=== PATIENT | female | born 1990 | race African-American/Black ===

== ENCOUNTER 2022-02-05 10:08 | Emergency (ER) | payer SELFPAY ==
[2022-02-05 13:38] LABS: POTASSIUM,K 3.6 mmol/L (3.5-5.1)
== END 2022-02-05 15:31 | disposition home or self-care (01) ==
LOC: MW.ED 10:08
DX: O20.9 Hemorrhage in early pregnancy, unspecified (principal); Z3A.01 Less than 8 weeks gestation of pregnancy
CPT/HCPCS: 36415; 76801; 76801-26; 80048; 81001; 81025; 84702; 85025; 86850; 86900; 86901; 87086; 99284; J2790

== ENCOUNTER 2022-05-31 10:31 | Emergency (ER) | payer MEDICAID ==
[2022-05-31 11:30] LABS: CORONAVIRUS COVID-19 NAA NEGATIVE (NEGATIVE); INFLUENZA A NAA NEGATIVE (NEGATIVE); INFLUENZA B NAA NEGATIVE (NEGATIVE); RESPIRATORY SYNCYTIAL VIR NAA NEGATIVE (NEGATIVE)
== END 2022-05-31 12:07 | disposition home or self-care (01) ==
LOC: MW.ED 10:31
DX: J02.9 Acute pharyngitis, unspecified (principal); Z86.16 Personal history of COVID-19; Z20.822 Contact with and (suspected) exposure to COVID-19
CPT/HCPCS: 0241U; 87651; 99283

== ENCOUNTER 2022-09-21 20:36 | Inpatient (IN) | payer MEDICAID ==
[2022-09-21] MEDS ORDERED: Water For Irrigation,Sterile 1,000 ML Container IRR PRN (21:38)
[2022-09-21] MEDS ORDERED: Misoprostol 200 MCG Tab PO PRN (21:38)
[2022-09-21] MEDS ORDERED: Carboprost Tromethamine 250 MCG/1 mL Vial IM PRN (21:38)
[2022-09-21] MEDS ORDERED: Butorphanol 1 MG/ML SDV IVPUSH PRN (21:38)
[2022-09-21] MEDS ORDERED: Sodium Chloride 0.9% 2.5 ML Syringe FLUSH PRN (21:38)
[2022-09-21] MEDS ORDERED: Tranexamic Acid 1,000 MG in Sodium Chloride 0.9% 100 ML IV PRN (21:38)
[2022-09-21] MEDS ORDERED: Sodium Chloride 0.9% 20 ML SDV IV PRN (21:38)
[2022-09-21] MEDS ORDERED: Methylergonovine 0.2 MG/1 ML Amp IM PRN (21:38)
[2022-09-21] MEDS ORDERED: Lidocaine 1% 50 ML MDV INJECT PRN (21:38)
[2022-09-21] MEDS ORDERED: Sodium Chloride 0.9% 10 ML Syringe FLUSH PRN (21:38)
[2022-09-21] MEDS ORDERED: Oxytocin/0.9 % Sodium Chloride 30 UNIT/500 ML BAG IV SCH (21:45)
[2022-09-21 23:45] LABS: HEMATOCRIT 31.4 % (36.0-46.0); HEMOGLOBIN 10.2 g/dL (12.0-16.0); MEAN CORPUSCULAR HEMOGLOBIN 26.6 pg (27.0-32.0); MEAN CORPUSCULAR HGB CONC 32.5 g/dL (31.0-37.0); RED BLOOD CELL COUNT 3.83 M/uL (4.30-5.90); WHITE BLOOD CELL COUNT,WBC 6.51 K/uL (4.0-11.0)
[2022-09-22] MEDS: Lactated Ringers 1,000 ML IV SCH ×2 (05:50→09:18)
[2022-09-22] MEDS ORDERED: Phenylephrine HCl 0.5 MG/5 ML AMP IVPUSH PRN (07:31)
[2022-09-22] MEDS ORDERED: ePHEDrine 50 MG/ML SDV IVPUSH PRN ×2 (07:31)
[2022-09-22] MEDS ORDERED: Dexmedetomidine 200 MCG/2 ML SDV ONE (07:41)
[2022-09-22] MEDS ORDERED: Ropivacaine HCl/PF 400 MG in Premix Bag 1 BAG EPIDUR SCH (07:45)
[2022-09-22] MEDS ORDERED: Docusate Sodium 100 MG Cap PO PRN (12:12)
[2022-09-22] MEDS ORDERED: oxyCODONE 5 MG Tab PO PRN (12:12)
[2022-09-22] MEDS ORDERED: Benzocaine/Menthol 20%-0.5% Spray 78 GM Cannister TOP PRN (12:12)
[2022-09-22] MEDS ORDERED: Bisacodyl 10 MG Supp RECTAL PRN (12:12)
[2022-09-22] MEDS ORDERED: Witch Hazel Medicated Pads 40/Jar TOP PRN (12:12)
[2022-09-22] MEDS ORDERED: Lanolin 100% Cream 7 GM Tube TOP PRN (12:12)
[2022-09-22] MEDS ORDERED: Ibuprofen 800 MG Tab PO PRN (12:12)
[2022-09-22] MEDS ORDERED: Acetaminophen 500 MG Tab PO PRN ×2 (12:12)
[2022-09-22] MEDS ORDERED: Ibuprofen 400 MG Tab PO PRN (12:12)
[2022-09-22 12:25] LABS: PH,UMBILICAL ARTERIAL 7.177 (7.18-7.38); PH,UMBILICAL VENOUS 7.318 (7.25-7.45)
[2022-09-23 05:50] LABS: HEMATOCRIT 25.4 % (36.0-46.0); HEMOGLOBIN 8.2 g/dL (12.0-16.0)
== END 2022-09-23 14:15 | disposition home or self-care (01) | DRG 807 ==
LOC: MW.OBCHECK 20:36 → MW.OB 20:36 → MW.OBCHECK 21:37 → MW.OB 21:38 → OBSVTOIN 09-22 11:33 → MW.OB 09-22 16:06
PROVIDERS: ADMIT Obstetrics & Gynecology; ATTEND Obstetrics & Gynecology
PROC: 10E0XZZ Delivery of Products of Conception, External Approach (ICD-10-PCS; principal; 2022-09-21)
PROC: 0UQMXZZ Repair Vulva, External Approach (ICD-10-PCS; 2022-09-21)
PROC: 3E0R3BZ Introduction of Anesthetic Agent into Spinal Canal, Percutaneous Approach (ICD-10-PCS; 2022-09-21)
PROC: 00HU33Z Insertion of Infusion Device into Spinal Canal, Percutaneous Approach (ICD-10-PCS; 2022-09-21)
PROC: 0HQ9XZZ Repair Perineum Skin, External Approach (ICD-10-PCS; 2022-09-21)
DX: O42.02 Full-term premature rupture of membranes, onset of labor within 24 hours of rupture (principal); Z37.0 Single live birth; O71.82 Other specified trauma to perineum and vulva; O99.02 Anemia complicating childbirth; O70.0 First degree perineal laceration during delivery; Z3A.39 39 weeks gestation of pregnancy
CPT/HCPCS: 36415; 51702; 59025; 59409; 82803; 85014; 85018; 85027; 85460; 86592; 86850; 86900; 86901; A9270-GY; J0595; J2590; J2790; J3490; J7120